=== PATIENT | female | born 1945 | race Caucasian/White ===

== ENCOUNTER → 2023-07-20 10:43 | Outpatient (REF) | payer BC, SELFPAY ==
[2023-07-20 12:28] LABS: % Basophils 1.1 % (0-2); % Eosinophils 3.5 % (0-6); % Immature Granulocytes 0.9 % (0-0.5); % Lymphocytes 16.6 % (20.5-51.1); % Monocytes 12.9 % (1.7-9.3); Absolute Basophils 0.1 10^3/uL (0-0.2); Absolute Eosinophils 0.3 10^3/uL (0-0.7); Absolute Immature Granulocytes 0.1 10^3/uL (0-0.05); Absolute Lymphocytes 1.4 10^3/uL (1.2-3.4); Absolute Monocytes 1.1 10^3/uL (0.1-0.6); Absolute Neutrophils 5.3 10^3/uL (1.4-6.5); Hematocrit 33.4 % (37.0-47.0); Hemoglobin 10.5 g/dL (12.0-16.0); Mean Corp Hgb Conc. 31.4 g/dL (33.0-37.0); Mean Corpuscular Hgb 26.5 pg (27.0-31.0); Mean Corpuscular Volume 84.3 fL (81.0-99.0); Mean Platelet Volume 9.4 fL (7.4-10.4); Nucleated Red Blood Cells % 0 %; Platelet Count 393 10^3/uL (130-400); Red Blood Cell Count 3.96 10^6/uL (4.20-5.40); Red Cell Dist. Width 13.4 % (11.5-14.5); White Blood Cell Count 8.1 10^3/uL (4.8-10.8)
[2023-07-20 13:06] LABS: ALT (SGPT) < 10 U/L (0-35); AST (SGOT) 19 U/L (14-36); Albumin 3.2 g/dl (3.5-5.0); Alkaline Phosphatase 57 U/L (38-126); Blood Urea Nitrogen 15 mg/dl (7-17); Carbon Dioxide 26 mmol/L (22-30); Chloride 95 mmol/L (98-107); Glucose 92 mg/dl (70-99); HDL Cholesterol 48 mg/dl; LDL Cholesterol, Calculated 79 mg/dl; Potassium 4.4 mmol/L (3.5-5.1); Sodium 128 mmol/L (135-145); Total Bilirubin 0.5 mg/dl (0.2-1.3); Total Cholesterol 148 mg/dl (50-199); Total Protein 5.5 g/dl (6.3-8.2); Triglyceride 105 mg/dl (10-149); Very Low Density Lipoprotein 21 mg/dl (0-30); eGFR > 60.00
[2023-07-20 13:09] LABS: Vitamin D, 25-OH*** 35.2 ng/mL (30-80)
[2023-07-20 13:23] LABS: TSH Reflex To Free T4 1.46 uIU/ml (0.47-4.68)
[2023-07-22 10:56] LABS: Intact PTH 34.6 pg/ml (13.6-85.8)
== END ==
LOC: OLABPG 10:43
PROVIDERS: ATTENDING PHYSICIAN Internal Medicine
DX: E55.9 Vitamin D deficiency, unspecified (principal); E21.3 Hyperparathyroidism, unspecified; E03.9 Hypothyroidism, unspecified; R53.83 Other fatigue
CPT/HCPCS: 36415; 80053; 80061; 82306; 83970; 84443; 85025

== ENCOUNTER → 2023-08-17 10:09 | Outpatient (REF) | payer BC, SELFPAY ==
[2023-08-17 11:38] LABS: Blood Urea Nitrogen 13 mg/dl (7-17); Calcium 8.7 mg/dl (8.4-10.2); Carbon Dioxide 25 mmol/L (22-30); Chloride 99 mmol/L (98-107); Glucose 92 mg/dl (70-99); Potassium 4.3 mmol/L (3.5-5.1); Sodium 128 mmol/L (135-145); eGFR > 60.00
== END ==
LOC: OLABPG 10:09
PROVIDERS: ATTENDING PHYSICIAN Internal Medicine
DX: E87.1 Hypo-osmolality and hyponatremia (principal)
CPT/HCPCS: 36415; 80048

== ENCOUNTER → 2023-10-19 10:02 | Outpatient (REF) | payer BC, SELFPAY ==
[2023-10-19 11:00] LABS: Blood Urea Nitrogen 15 mg/dl (7-17); Calcium 9.3 mg/dl (8.4-10.2); Carbon Dioxide 25 mmol/L (22-30); Chloride 98 mmol/L (98-107); Glucose 97 mg/dl (70-99); Potassium 5.1 mmol/L (3.5-5.1); Sodium 131 mmol/L (135-145); eGFR > 60.00
== END ==
LOC: OLABPG 10:02
PROVIDERS: ATTENDING PHYSICIAN Physician Assistant; OTHER PHYSICIAN Obstetrics & Gynecology
DX: F03.90 Unspecified dementia, unspecified severity, without behavioral disturbance, psychotic disturbance, mood disturbance, and anxiety (principal)
CPT/HCPCS: 36415; 80048

== ENCOUNTER → 2023-10-25 15:23 | Outpatient (REF) | payer BC, SELFPAY ==
[2023-10-25 16:17] LABS: Urine Albumin Trace (Neg - Trace); Urine Bilirubin Negative (Negative); Urine Character Very Cloudy (Clear); Urine Color Yellow; Urine Glucose Negative (Negative); Urine Ketone Negative (Negative); Urine Leukocyte 1+ (Negative); Urine Nitrite Positive (Negative); Urine Occult Blood 1+ (Negative); Urine Urobilinogen Negative (Neg - 1+)
[2023-10-25 16:31] LABS: Urine Bacteria Many (Negative); Urine Red Blood Cell 0-2 /HPF (0-2)
== END ==
LOC: OLABPG 15:23
PROVIDERS: ATTENDING PHYSICIAN Internal Medicine
DX: N39.0 Urinary tract infection, site not specified (principal)
CPT/HCPCS: 81003; 81015; 87086

== ENCOUNTER → 2023-10-26 10:03 | Outpatient (REF) | payer BC, SELFPAY ==
[2023-10-26 11:20] LABS: Urine Albumin Negative (Neg - Trace); Urine Bilirubin Negative (Negative); Urine Character Clear (Clear); Urine Color Straw; Urine Glucose Negative (Negative); Urine Ketone Negative (Negative); Urine Leukocyte 1+ (Negative); Urine Nitrite Positive (Negative); Urine Occult Blood Negative (Negative); Urine Urobilinogen Negative (Neg - 1+)
[2023-10-26 11:34] LABS: Urine Bacteria Few (Negative); Urine Red Blood Cell 0-2 /HPF (0-2); Urine Squamous Cell 0-2 /LPF (Few)
== END ==
LOC: OLABPG 10:03
PROVIDERS: ATTENDING PHYSICIAN Internal Medicine
DX: N39.0 Urinary tract infection, site not specified (principal)
CPT/HCPCS: 81003; 81015

== ENCOUNTER → 2023-11-02 10:18 | Outpatient (REF) | payer BC, SELFPAY ==
[2023-11-02 11:56] LABS: Hematocrit 32.2 % (37.0-47.0); Hemoglobin 9.6 g/dL (12.0-16.0); Mean Corp Hgb Conc. 29.8 g/dL (33.0-37.0); Mean Corpuscular Hgb 22.4 pg (27.0-31.0); Mean Corpuscular Volume 75.1 fL (81.0-99.0); Mean Platelet Volume 9.1 fL (7.4-10.4); Platelet Count 401 10^3/uL (130-400); Red Blood Cell Count 4.29 10^6/uL (4.20-5.40); Red Cell Dist. Width 16.1 % (11.5-14.5); White Blood Cell Count 9.3 10^3/uL (4.8-10.8)
[2023-11-02 12:09] LABS: Blood Urea Nitrogen 23 mg/dl (7-17); Calcium 9.6 mg/dl (8.4-10.2); Carbon Dioxide 25 mmol/L (22-30); Chloride 95 mmol/L (98-107); Glucose 95 mg/dl (70-99); Potassium 4.6 mmol/L (3.5-5.1); Sodium 128 mmol/L (135-145); eGFR > 60.00
== END ==
LOC: OLABPG 10:18
PROVIDERS: ATTENDING PHYSICIAN Internal Medicine
DX: I10 Essential (primary) hypertension (principal); E78.2 Mixed hyperlipidemia; R73.03 Prediabetes; I35.8 Other nonrheumatic aortic valve disorders; G23.8 Other specified degenerative diseases of basal ganglia; G11.9 Hereditary ataxia, unspecified; E87.1 Hypo-osmolality and hyponatremia
CPT/HCPCS: 36415; 80048; 85027

== ENCOUNTER → 2023-11-14 10:48 | Outpatient (REF) | payer BC, SELFPAY ==
[2023-11-14 11:48] LABS: % Basophils 1.6 % (0-2); % Eosinophils 5.1 % (0-6); % Immature Granulocytes 0.4 % (0-0.5); % Lymphocytes 21.4 % (20.5-51.1); % Monocytes 10.4 % (1.7-9.3); % Neutrophils 61.1 % (42.2-75.2); Absolute Basophils 0.1 10^3/uL (0-0.2); Absolute Eosinophils 0.4 10^3/uL (0-0.7); Absolute Lymphocytes 1.5 10^3/uL (1.2-3.4); Absolute Monocytes 0.7 10^3/uL (0.1-0.6); Absolute Neutrophils 4.3 10^3/uL (1.4-6.5); Hemoglobin 9.7 g/dL (12.0-16.0); Mean Corp Hgb Conc. 30.3 g/dL (33.0-37.0); Mean Corpuscular Hgb 22.5 pg (27.0-31.0); Mean Corpuscular Volume 74.2 fL (81.0-99.0); Nucleated Red Blood Cells % 0 %; Platelet Count 377 10^3/uL (130-400); Red Blood Cell Count 4.31 10^6/uL (4.20-5.40); Red Cell Dist. Width 16.8 % (11.5-14.5); White Blood Cell Count 7.1 10^3/uL (4.8-10.8)
[2023-11-14 12:19] LABS: ALT (SGPT) 11 U/L (0-35); AST (SGOT) 19 U/L (14-36); Albumin 3.5 g/dl (3.5-5.0); Alkaline Phosphatase 64 U/L (38-126); Blood Urea Nitrogen 15 mg/dl (7-17); Calcium 9.5 mg/dl (8.4-10.2); Carbon Dioxide 29 mmol/L (22-30); Chloride 101 mmol/L (98-107); Glucose 101 mg/dl (70-99); Iron 31 ug/dl (37-170); Potassium 4.5 mmol/L (3.5-5.1); Sodium 133 mmol/L (135-145); Total Bilirubin 0.5 mg/dl (0.2-1.3); eGFR > 60.00
[2023-11-14 12:29] LABS: Percent Saturation 7 % (20-50); Total Iron Binding Capacity 409 ug/dl (265-497)
[2023-11-14 14:35] LABS: Ferritin 6.7 ng/ml (11.1-264.0)
[2023-11-14 15:06] LABS: Folate 10.3 ng/ml (2.76-20); Vitamin B12 709 pg/ml (239-931)
== END ==
LOC: OLABPG 10:48
PROVIDERS: ATTENDING PHYSICIAN Internal Medicine
DX: E78.5 Hyperlipidemia, unspecified (principal); M62.82 Rhabdomyolysis; D64.9 Anemia, unspecified
CPT/HCPCS: 36415; 80053; 82607; 82728; 82746; 83540; 83550; 85025

== ENCOUNTER 2023-11-14 12:14 | Emergency (ER) | payer BC, SELFPAY ==
[2023-11-14 12:17] VITALS: BP 138/74
--- NOTE | 2023-11-14 12:23 | ED.GENMED ---
History of Present Illness
General
Chief Complaint: Catheter/Tube Problem
Source: ambulance crew
Time Seen by Provider: 11/14/23 12:17
Travel History
Have you had any contact with someone who has COVID-19?: Unable to Answer
Do you have any symptoms of coronavirus? Fever > 100 degrees, chills, cough, shortness of breath, sore throat, loss of taste or smell, muscle aches, or headache?: Unable to Answer
History of Present Illness
History of Present Illness:
78-year-old female presenting to the emergency department from [facility] for evaluation after she had accidentally pulled her urinary catheter out this morning and visiting nurse was unable to put back in. Patient has no complaints at this time and
states she otherwise feels well. No other concerns
Past History
Past History
ED Past Medical History: HTN, Hypercholesterolemia and Other (Pemphigus)
ED Past Surgical History: Gynecological (D. and C.) and Tonsilectomy
Social History
Tobacco: Non-smoker
Alcohol: None
Drug: None
Personal: Single
Living: alone (Independent living at [facility])
Family History
Family History: Negative CAD
Review of Systems
Review of Systems
All Other Systems: ROS reviewed and negative except as documented in HPI and ROS
Phy Exam
Physical Exam
Physical Exam:
GENERAL: Alert , in no apparent distress
EYE: conjunctiva clear
Head: Normocephalic atraumatic
NECK: Supple,
ENT: mmm.
LUNGS: no acute respiratory distress
NEUROLOGICAL: Alert and oriented
SKIN: Warm and dry, skin intact.
MUSCULOSKELETAL: well perfused.
PSYCH: Normal and appropriate interaction.
Scores
Heart Failure Risk
Heart Failure Risk Score: Not Applicable
Heart Score for Chest Pain Patients
STEMI patient?: Not applicable
Withdrawal Assessment of Alcohol
Withdrawal Assessment Completed?: Not applicable
Course
Orders/Labs/Results
Orders:
Orders
11/14/23 12:18
Hill Placement- Treatment ONCE
Reason for insertion: Acute Retention
Vital Signs
Initial and Last Documented VS:
Initial Vital Signs
Temp Pulse BP Pulse Ox
98.1 F 95 138/74 96
11/14/23 12:17 11/14/23 12:17 11/14/23 12:17 11/14/23 12:17
Last Documented Vital Signs
Temp Pulse BP Pulse Ox
98.1 F 95 138/74 96
11/14/23 12:17 11/14/23 12:17 11/14/23 12:17 11/14/23 12:17
MDM/Problems Addressed
MDM/Problems Addressed:
78-year-old female presenting for accidentally removing her Hill catheter earlier this morning. Staff unable to replace. Nursing staff here to place Hill catheter without any complications. Patient was stable for discharge back to [facility].
*Pulse Oximetry
Patient hypoxic: no
*Critical Care Note
Total Time (30-74mins, 75-104mins- exclusive of procedures): Not Applicable
Data Reviewed
Review of Other/Old Records Reveals: Labs and Records
Source: patient
ED Attending Note
-
Portions of this chart may have been created with voice recognition software.� Occasional wrong word or��sound alike� substitutions may have occurred due to the inherent limitations of voice recognition software.
Discharge Plan
Departure
Patient Disposition: Home (Routine Discharge)
Date of Disposition: 11/14/23
Time of Disposition: 12:23
Patient with high blood pressure during this ER visit?: No
Discharge Problem:
Acute on chronic urinary retention
Instructions: How to Care for Your Hill Catheter
Prescriptions:
No Action
simvastatin 20 MG tablet
20 mg PO HS
Patient Comments:
04/30/2023, family of patient states that patient is 'not consistent' with taking their medication and have 'no routine' for taking their medications.
Rx Instructions:
04/30/2023, patient filled this medication on 07/02/2022 for a 90 day supply according to the pharmacy fill data.
losartan 25 mg Tablet
25 mg PO DAILY
Patient Comments:
04/30/2023, family of patient states that patient is 'not consistent' with taking their medication and have 'no routine' for taking their medications.
carbidopa-levodopa 25-100 mg Tablet
2 tab PO TID@0800,1200,1700
Patient Comments:
04/30/2023, family of patient states that patient is 'not consistent' with taking their medication and have 'no routine' for taking their medications.
food supplemt, lactose-reduced Liquid
1 ea PO DAILY
Patient Comments:
04/30/2023, family of patient states that patient is 'not consistent' with taking their medication and have 'no routine' for taking their medications.
Viactiv
1 tab PO DAILY
Patient Comments:
04/30/2023, family of patient states that patient is 'not consistent' with taking their medication and have 'no routine' for taking their medications.
Interventions
Interventions:
*Risk Screen - Suicide Last Done: 11/14/23 12:17
*General Assessment Last Done: 11/14/23 12:17
*Neglect/Abuse Screening Last Done: 11/14/23 12:17
*ED COVID-19 Vaccine History Last Done: 11/14/23 12:17
Discharge Date and Time
Print Language: FAROESE
== END 2023-11-14 12:37 | disposition home or self-care (01) ==
LOC: EMR 12:14
PROVIDERS: EMERGENCY PHYSICIAN Emergency Medicine
DX: R33.9 Retention of urine, unspecified (principal)
CPT/HCPCS: 99283; 51702

== ENCOUNTER → 2023-11-23 18:03 | Outpatient (REF) | payer OTHER, SELFPAY | LOC: OLABPG 18:03 | PROVIDERS: ATTENDING PHYSICIAN Internal Medicine | DX: R19.5 Other fecal abnormalities (principal) | CPT/HCPCS: 82272 ==

== ENCOUNTER 2023-12-03 10:23 | Emergency (ER) | payer OTHER, SELFPAY ==
--- NOTE | 2023-12-03 10:25 | ED.GENMED ---
History of Present Illness
General
Chief Complaint: Catheter/Tube Problem
Source: patient and ambulance crew
Time Seen by Provider: 12/03/23 10:24
History of Present Illness
History of Present Illness:
78-year-old female presenting to the emergency department for evaluation after her visiting nurse was unable to replace her Hill catheter after patient had excellently pulled it out. Patient has no concerns at this time including abdominal pain,
fevers, nausea, vomiting, bowel changes. She states she is otherwise in her usual state of health.
Past History
Past History
ED Past Medical History: HTN, Hypercholesterolemia and Other (Pemphigus)
ED Past Surgical History: Gynecological (D. and C.) and Tonsilectomy
Social History
Tobacco: Non-smoker
Alcohol: None
Drug: None
Personal: Single
Living: alone (Independent living at [facility])
Family History
Family History: Negative CAD
Review of Systems
Review of Systems
All Other Systems: ROS reviewed and negative except as documented in HPI and ROS
Phy Exam
Physical Exam
Physical Exam:
GENERAL: Alert , in no apparent distress
EYE: conjunctiva clear
Head: Normocephalic atraumatic
NECK: Supple,
ENT: mmm.
LUNGS: no acute respiratory distress
Abdomen: Soft, nondistended
NEUROLOGICAL: Alert and oriented
SKIN: Warm and dry, skin intact.
MUSCULOSKELETAL: well perfused.
PSYCH: Normal and appropriate interaction.
Scores
Heart Failure Risk
Heart Failure Risk Score: Not Applicable
Heart Score for Chest Pain Patients
STEMI patient?: Not applicable
Withdrawal Assessment of Alcohol
Withdrawal Assessment Completed?: Not applicable
Course
Vital Signs
Initial and Last Documented VS:
Initial Vital Signs
Temp Pulse Resp BP Pulse Ox
97.5 F 94 16 93/63 96
12/03/23 10:31 12/03/23 10:31 12/03/23 10:31 12/03/23 10:31 12/03/23 10:31
Last Documented Vital Signs
Temp Pulse Resp BP Pulse Ox
97.2 F 91 16 102/64 97
12/03/23 13:23 12/03/23 13:23 12/03/23 13:23 12/03/23 13:23 12/03/23 13:23
MDM/Problems Addressed
MDM/Problems Addressed:
78-year-old female presenting emergency department for evaluation after she excellently pulled her Hill catheter out and visiting nurse was unable to replace. Will place new catheter here. As long as no complications patient will be for
disposition back to [facility]. No current symptoms to suggest UTI
*Pulse Oximetry
Patient hypoxic: no
*Critical Care Note
Total Time (30-74mins, 75-104mins- exclusive of procedures): Not Applicable
Data Reviewed
Review of Other/Old Records Reveals: Records
Source: patient and ambulance crew
Patient Management
Escalation/DeEscalation of care consider admission/obs:
Hill catheter replaced without any difficulty. Patient stable for transport back to [facility]. Aware of return precautions to the ED
ED Attending Note
-
Portions of this chart may have been created with voice recognition software.� Occasional wrong word or��sound alike� substitutions may have occurred due to the inherent limitations of voice recognition software.
Discharge Plan
Departure
Patient Disposition: Home (Routine Discharge)
Date of Disposition: 12/03/23
Time of Disposition: 10:51
Patient with high blood pressure during this ER visit?: No
Discharge Problem:
Encounter for Hill catheter replacement
Instructions: How to Care for Your Hill Catheter
Prescriptions:
No Action
simvastatin 20 MG tablet
20 mg PO HS
Patient Comments:
04/30/2023, family of patient states that patient is 'not consistent' with taking their medication and have 'no routine' for taking their medications.
Rx Instructions:
04/30/2023, patient filled this medication on 07/02/2022 for a 90 day supply according to the pharmacy fill data.
losartan 25 mg Tablet
25 mg PO DAILY
Patient Comments:
04/30/2023, family of patient states that patient is 'not consistent' with taking their medication and have 'no routine' for taking their medications.
carbidopa-levodopa 25-100 mg Tablet
2 tab PO TID@0800,1200,1700
Patient Comments:
04/30/2023, family of patient states that patient is 'not consistent' with taking their medication and have 'no routine' for taking their medications.
food supplemt, lactose-reduced Liquid
1 ea PO DAILY
Patient Comments:
04/30/2023, family of patient states that patient is 'not consistent' with taking their medication and have 'no routine' for taking their medications.
Viactiv
1 tab PO DAILY
Patient Comments:
04/30/2023, family of patient states that patient is 'not consistent' with taking their medication and have 'no routine' for taking their medications.
Interventions
Interventions:
*Risk Screen - Suicide Last Done: 12/03/23 10:53
*General Assessment Last Done: 12/03/23 10:53
*Neglect/Abuse Screening Last Done: 12/03/23 10:53
ED- Fall Risk Assessment Last Done: 12/03/23 10:56
*ED COVID-19 Vaccine History Last Done: 12/03/23 10:53
*Nursing Disposition Last Done: 12/03/23 13:23
ZT-Ahcrtv-Dglzcotaxy Assessment Last Done: 12/03/23 10:56
ED-Female Genitourinary Assessment Last Done: 12/03/23 10:56
Discharge Date and Time
Discharge Date/Time: 12/03/23 13:25
Print Language: SLOVAK
[2023-12-03 10:31] VITALS: BP 93/63; BMI 23.1
[2023-12-03 13:23] VITALS: BP 102/64
== END 2023-12-03 13:25 | disposition home or self-care (01) ==
LOC: EMR 10:23
PROVIDERS: EMERGENCY PHYSICIAN Emergency Medicine; FAMILY PHYSICIAN Internal Medicine
DX: Z46.6 Encounter for fitting and adjustment of urinary device (principal)
CPT/HCPCS: 99283; 51702

== ENCOUNTER 2023-12-06 12:20 | Emergency (ER) | payer OTHER, SELFPAY ==
[2023-12-06 12:32] VITALS: BP 131/65
--- NOTE | 2023-12-06 12:32 | ED.GENMED ---
History of Present Illness
General
Chief Complaint: Catheter/Tube Problem
Source: patient and ambulance crew
Time Seen by Provider: 12/06/23 12:31
History of Present Illness
History of Present Illness:
78-year-old female presenting to the emergency department for clogged Hill catheter. Patient was recently here within the last week or so for Hill catheter exchange. Patient has no other concerns at this time. Patient has no other concerns at
this time.
Past History
Past History
ED Past Medical History: HTN, Hypercholesterolemia and Other (Pemphigus)
ED Past Surgical History: Gynecological (D. and C.) and Tonsilectomy
Social History
Tobacco: Non-smoker
Alcohol: None
Drug: None
Personal: Single
Living: alone (Independent living at [facility])
Family History
Family History: Negative CAD
Review of Systems
Review of Systems
All Other Systems: ROS reviewed and negative except as documented in HPI and ROS
Phy Exam
Physical Exam
Physical Exam:
GENERAL: Alert , in no apparent distress
EYE: conjunctiva clear
Head: Normocephalic atraumatic
NECK: Supple,
ENT: mmm.
LUNGS: no acute respiratory distress
NEUROLOGICAL: Alert and oriented
SKIN: Warm and dry, skin intact.
MUSCULOSKELETAL: well perfused.
PSYCH: Normal and appropriate interaction.
Scores
Heart Failure Risk
Heart Failure Risk Score: Not Applicable
Heart Score for Chest Pain Patients
STEMI patient?: Not applicable
Withdrawal Assessment of Alcohol
Withdrawal Assessment Completed?: Not applicable
Course
Vital Signs
Initial and Last Documented VS:
Initial Vital Signs
Temp Pulse Resp BP Pulse Ox
97.7 F 74 17 131/65 99
12/06/23 12:32 12/06/23 12:32 12/06/23 12:32 12/06/23 12:32 12/06/23 12:32
Last Documented Vital Signs
Temp Pulse Resp BP Pulse Ox
97.7 F 74 17 131/65 99
12/06/23 12:32 12/06/23 12:32 12/06/23 12:32 12/06/23 12:32 12/06/23 12:32
MDM/Problems Addressed
MDM/Problems Addressed:
78-year-old female presenting to the emergency department for evaluation of a clogged Hill catheter. Unable to flush. Hill catheter was exchanged without any difficulty. Stable for discharge back to [facility].
*Pulse Oximetry
Patient hypoxic: no
*Critical Care Note
Total Time (30-74mins, 75-104mins- exclusive of procedures): Not Applicable
ED Attending Note
-
Portions of this chart may have been created with voice recognition software.� Occasional wrong word or��sound alike� substitutions may have occurred due to the inherent limitations of voice recognition software.
Discharge Plan
Departure
Patient Disposition: Home (Routine Discharge)
Date of Disposition: 12/06/23
Time of Disposition: 12:32
Patient with high blood pressure during this ER visit?: No
Discharge Problem:
Obstructed Hill catheter
Instructions: How to Care for Your Hill Catheter
Prescriptions:
No Action
simvastatin 20 MG tablet
20 mg PO HS
Patient Comments:
04/30/2023, family of patient states that patient is 'not consistent' with taking their medication and have 'no routine' for taking their medications.
Rx Instructions:
04/30/2023, patient filled this medication on 07/02/2022 for a 90 day supply according to the pharmacy fill data.
losartan 25 mg Tablet
25 mg PO DAILY
Patient Comments:
04/30/2023, family of patient states that patient is 'not consistent' with taking their medication and have 'no routine' for taking their medications.
carbidopa-levodopa 25-100 mg Tablet
2 tab PO TID@0800,1200,1700
Patient Comments:
04/30/2023, family of patient states that patient is 'not consistent' with taking their medication and have 'no routine' for taking their medications.
food supplemt, lactose-reduced Liquid
1 ea PO DAILY
Patient Comments:
04/30/2023, family of patient states that patient is 'not consistent' with taking their medication and have 'no routine' for taking their medications.
Viactiv
1 tab PO DAILY
Patient Comments:
04/30/2023, family of patient states that patient is 'not consistent' with taking their medication and have 'no routine' for taking their medications.
Interventions
Interventions:
*Risk Screen - Suicide Last Done: 12/06/23 12:39
*General Assessment Last Done: 12/06/23 12:39
*Neglect/Abuse Screening Last Done: 12/06/23 12:39
*ED COVID-19 Vaccine History Last Done: 12/06/23 12:39
*Nursing Disposition Last Done: 12/06/23 12:39
RP-Vxwpbq-Sqlyuqkhii Assessment Last Done: 12/06/23 12:33
ED-Female Genitourinary Assessment Last Done: 12/06/23 12:33
Discharge Date and Time
Print Language: MACANESE
== END 2023-12-06 12:39 | disposition home or self-care (01) ==
LOC: EMR 12:20
PROVIDERS: EMERGENCY PHYSICIAN Emergency Medicine; FAMILY PHYSICIAN Internal Medicine
DX: T83.091A Other mechanical complication of indwelling urethral catheter, initial encounter (principal); X58.XXXA Exposure to other specified factors, initial encounter; I10 Essential (primary) hypertension; E78.00 Pure hypercholesterolemia, unspecified
CPT/HCPCS: 99282; 51702

== ENCOUNTER 2023-12-25 15:50 | Emergency (ER) | payer OTHER, SELFPAY ==
[2023-12-25] VITALS (8 sets, daily range): BP systolic 112–146; BP diastolic 61–88; BMI 24.1
--- NOTE | 2023-12-25 16:47 | ED.GENMED ---
History of Present Illness
General
Chief Complaint: Catheter/Tube Problem
Source: patient and ambulance crew
Exam Limitations: none
Time Seen by Provider: 12/25/23 15:53
Nursing documentation reviewed up to this point in time: agreed with
History of Present Illness
History of Present Illness:
78-year-old female with history of Parkinson's, HTN, HLD, dementia presents from [facility] for a malfunctioning Hill catheter, urine has been draining around the catheter. Patient denies abdominal pain, denies fever or chills.
Past History
Past History
ED Past Medical History: HTN, Hypercholesterolemia and Other (Pemphigus, dementia, Parkinson's)
ED Past Surgical History: Gynecological (D. and C.) and Tonsilectomy
Social History
Tobacco: Non-smoker
Alcohol: None
Drug: None
Personal: Single
Living: alone (Independent living at [facility])
Family History
Family History: Negative CAD
Review of Systems
Review of Systems
Allergies reviewed?: Yes
All Other Systems: ROS reviewed and negative except as documented in HPI and ROS
Constitutional: Denies fever or chills
ABD/GI: Denies abdominal pain, nausea or vomiting
: Reports other (Hill catheter leaking)
Musculoskeletal: Denies edema
Skin: Reports no symptoms
Phy Exam
Physical Exam
Physical Exam:
GENERAL: No acute distress. A&Ox2.
CONSTITUTIONAL: Afebrile.
RESPIRATORY: Regular respirations, nonlabored, lungs clear.
CARDIOVASCULAR: Regular rate and rhythm, no murmurs, no rubs.
GI: Soft, nontender, normal BS
: Hill catheter malfunction, bed soaked with urine
MUSCULOSKELETAL: Moves with ease. Well perfused.
SKIN: Warm, dry, pink
PSYCH: Normal mood and affect. Well kept, interactive and appropriate
NEUROLOGIC: Awake, alert and oriented x 2. No focal neurological deficits
Course
Vital Signs
Initial and Last Documented VS:
Initial Vital Signs
Temp Pulse Resp BP Pulse Ox
98.3 F 86 18 123/71 96
12/25/23 15:58 12/25/23 15:58 12/25/23 15:58 12/25/23 15:58 12/25/23 15:58
Last Documented Vital Signs
Temp Pulse Resp BP Pulse Ox
98.3 F 87 18 137/75 97
12/25/23 15:58 12/25/23 17:56 12/25/23 17:56 12/25/23 19:00 12/25/23 19:00
MDM/Problems Addressed
MDM/Problems Addressed:
78-year-old female with history of Parkinson's, HTN, HLD, dementia presents from [facility] for a malfunctioning Hill catheter, urine has been draining around the catheter. Patient denies abdominal pain, denies fever or chills.
Afebrile, NAD
Adbomen benign
Bed pads soaked with urine. Catheter removed and replaced
5:00 p.m.
Hill has no drainage. Bladder scan < 3 ml in bladder. Pt drinking well.
Pt is Hospice, no fever, no UTI symptoms, no indication for further testing such as U/A.
At discharge, Hill draining well.
*Critical Care Note
Total Time (30-74mins, 75-104mins- exclusive of procedures): Not Applicable
ED Attending Note
-
Portions of this chart may have been created with voice recognition software.� Occasional wrong word or��sound alike� substitutions may have occurred due to the inherent limitations of voice recognition software.
Discharge Plan
Departure
Patient Disposition: Long Term/SNF
Date of Disposition: 12/25/23
Time of Disposition: 17:06
Condition: Good
Discharge Problem:
Hill catheter problem
Prescriptions:
No Action
simvastatin 20 MG tablet
20 mg PO HS
Patient Comments:
04/30/2023, family of patient states that patient is 'not consistent' with taking their medication and have 'no routine' for taking their medications.
Rx Instructions:
04/30/2023, patient filled this medication on 07/02/2022 for a 90 day supply according to the pharmacy fill data.
losartan 25 mg Tablet
25 mg PO DAILY
Patient Comments:
04/30/2023, family of patient states that patient is 'not consistent' with taking their medication and have 'no routine' for taking their medications.
carbidopa-levodopa 25-100 mg Tablet
2 tab PO TID@0800,1200,1700
Patient Comments:
04/30/2023, family of patient states that patient is 'not consistent' with taking their medication and have 'no routine' for taking their medications.
food supplemt, lactose-reduced Liquid
1 ea PO DAILY
Patient Comments:
04/30/2023, family of patient states that patient is 'not consistent' with taking their medication and have 'no routine' for taking their medications.
Viactiv
1 tab PO DAILY
Patient Comments:
04/30/2023, family of patient states that patient is 'not consistent' with taking their medication and have 'no routine' for taking their medications.
Referrals:
CAROLANN MEDINA, [Family Provider] -
Activity Restrictions/Additional Instructions:
We replaced Ms Kang's catheter with 18 Fr. latex free catheter.
Interventions
Interventions:
*Risk Screen - Suicide Last Done: 12/25/23 16:08
*General Assessment Last Done: 12/25/23 16:08
*Neglect/Abuse Screening Last Done: 12/25/23 16:08
ED- Fall Risk Assessment Last Done: 12/25/23 16:10
*ED COVID-19 Vaccine History Last Done: 12/25/23 16:08
PW-Cxcdso-Lkmzrvrznl Assessment Last Done: 12/25/23 16:08
ED-Female Genitourinary Assessment Last Done: 12/25/23 16:08
Discharge Date and Time
Print Language: MONEGASQUE
== END 2023-12-25 22:34 ==
LOC: EMR 15:50
PROVIDERS: EMERGENCY PHYSICIAN Student in an Organized Health Care Education/Training Program; FAMILY PHYSICIAN Internal Medicine
DX: T83.038A Leakage of other urinary catheter, initial encounter (principal); Y84.6 Urinary catheterization as the cause of abnormal reaction of the patient, or of later complication, without mention of misadventure at the time of the procedure; F02.80 Dementia in other diseases classified elsewhere, unspecified severity, without behavioral disturbance, psychotic disturbance, mood disturbance, and anxiety; G20.A1 Parkinson's disease without dyskinesia, without mention of fluctuations; I10 Essential (primary) hypertension; E78.00 Pure hypercholesterolemia, unspecified; Z88.1 Allergy status to other antibiotic agents
CPT/HCPCS: 99284; 51798; 51702

== ENCOUNTER → 2024-01-09 14:15 | Outpatient (REF) | payer OTHER, SELFPAY ==
[2024-01-09 15:00] LABS: Hematocrit 38.4 % (37.0-47.0); Mean Corp Hgb Conc. 31.3 g/dL (33.0-37.0); Mean Corpuscular Hgb 25.1 pg (27.0-31.0); Mean Corpuscular Volume 80.2 fL (81.0-99.0); Mean Platelet Volume 9.5 fL (7.4-10.4); Platelet Count 343 10^3/uL (130-400); Red Blood Cell Count 4.79 10^6/uL (4.20-5.40); Red Cell Dist. Width 18.2 % (11.5-14.5)
[2024-01-09 15:16] LABS: Blood Urea Nitrogen 15 mg/dl (7-17); Calcium 9.5 mg/dl (8.4-10.2); Carbon Dioxide 28 mmol/L (22-30); Chloride 98 mmol/L (98-107); Glucose 91 mg/dl (70-99); Iron 48 ug/dl (37-170); Potassium 4.3 mmol/L (3.5-5.1); Sodium 132 mmol/L (135-145); eGFR > 60.00
== END ==
LOC: OLABPG 14:15
PROVIDERS: ATTENDING PHYSICIAN Internal Medicine
DX: D50.9 Iron deficiency anemia, unspecified (principal); E87.1 Hypo-osmolality and hyponatremia; G20.A1 Parkinson's disease without dyskinesia, without mention of fluctuations; I10 Essential (primary) hypertension
CPT/HCPCS: 36415; 80048; 83540; 85027

== ENCOUNTER → 2024-03-14 11:05 | Outpatient (REF) | payer OTHER, SELFPAY ==
[2024-03-14 12:40] LABS: % Basophils 1.2 % (0-2); % Eosinophils 3.6 % (0-6); % Immature Granulocytes 0.5 % (0-0.5); % Lymphocytes 18.9 % (20.5-51.1); % Monocytes 10.1 % (1.7-9.3); % Neutrophils 65.7 % (42.2-75.2); Absolute Basophils 0.1 10^3/uL (0-0.2); Absolute Eosinophils 0.3 10^3/uL (0-0.7); Absolute Lymphocytes 1.6 10^3/uL (1.2-3.4); Absolute Monocytes 0.9 10^3/uL (0.1-0.6); Absolute Neutrophils 5.7 10^3/uL (1.4-6.5); Hematocrit 38.6 % (37.0-47.0); Hemoglobin 12.7 g/dL (12.0-16.0); Mean Corp Hgb Conc. 32.9 g/dL (33.0-37.0); Mean Corpuscular Hgb 26.5 pg (27.0-31.0); Mean Corpuscular Volume 80.4 fL (81.0-99.0); Mean Platelet Volume 8.8 fL (7.4-10.4); Nucleated Red Blood Cells % 0 %; Platelet Count 342 10^3/uL (130-400); Red Cell Dist. Width 14.9 % (11.5-14.5); White Blood Cell Count 8.6 10^3/uL (4.8-10.8)
[2024-03-14 12:57] LABS: ALT (SGPT) 11 U/L (0-35); AST (SGOT) 20 U/L (14-36); Albumin 3.9 g/dl (3.5-5.0); Alkaline Phosphatase 64 U/L (38-126); Blood Urea Nitrogen 16 mg/dl (7-17); Calcium 9.3 mg/dl (8.4-10.2); Carbon Dioxide 27 mmol/L (22-30); Chloride 95 mmol/L (98-107); Glucose 99 mg/dl (70-99); Iron 44 ug/dl (37-170); Potassium 4.6 mmol/L (3.5-5.1); Sodium 134 mmol/L (135-145); Total Bilirubin 0.3 mg/dl (0.2-1.3); Total Protein 6.3 g/dl (6.3-8.2); eGFR > 60.00
[2024-03-14 13:06] LABS: Percent Saturation 10 % (20-50); Total Iron Binding Capacity 413 ug/dl (265-497)
[2024-03-14 13:13] LABS: Free T4 1.04 ng/dl (0.78-2.19)
[2024-03-14 13:31] LABS: Ferritin 9.6 ng/ml (11.1-264.0)
== END ==
LOC: OLABPG 11:05
PROVIDERS: ATTENDING PHYSICIAN Internal Medicine
DX: D50.9 Iron deficiency anemia, unspecified (principal); E87.1 Hypo-osmolality and hyponatremia; R63.4 Abnormal weight loss
CPT/HCPCS: 36415; 80053; 82728; 83540; 83550; 84439; 84443; 85025

== ENCOUNTER → 2024-06-17 11:12 | Outpatient (REF) | payer OTHER, SELFPAY ==
[2024-06-17 11:40] LABS: Hematocrit 33.8 % (37.0-47.0); Hemoglobin 11.1 g/dL (12.0-16.0); Mean Corp Hgb Conc. 32.8 g/dL (33.0-37.0); Mean Corpuscular Hgb 29.7 pg (27.0-31.0); Mean Corpuscular Volume 90.4 fL (81.0-99.0); Platelet Count 385 10^3/uL (130-400); Red Blood Cell Count 3.74 10^6/uL (4.20-5.40); Red Cell Dist. Width 13.5 % (11.5-14.5); White Blood Cell Count 9.4 10^3/uL (4.8-10.8)
[2024-06-17 11:51] LABS: Blood Urea Nitrogen 17 mg/dl (7-17); Calcium 8.7 mg/dl (8.4-10.2); Carbon Dioxide 25 mmol/L (22-30); Chloride 93 mmol/L (98-107); Glucose 87 mg/dl (70-99); Potassium 3.9 mmol/L (3.5-5.1); Sodium 129 mmol/L (135-145); eGFR > 60.00
== END ==
LOC: OLABP 11:12
PROVIDERS: ATTENDING PHYSICIAN Family Medicine
DX: G20.A1 Parkinson's disease without dyskinesia, without mention of fluctuations (principal); F03.918 Unspecified dementia, unspecified severity, with other behavioral disturbance; R04.0 Epistaxis; E87.20 Acidosis, unspecified; N31.9 Neuromuscular dysfunction of bladder, unspecified
CPT/HCPCS: 36415; 80048; 85027

== ENCOUNTER → 2024-06-25 11:00 | Outpatient (REF) | payer OTHER, SELFPAY ==
[2024-06-25 12:15] LABS: Blood Urea Nitrogen 17 mg/dl (7-17); Carbon Dioxide 30 mmol/L (22-30); Chloride 96 mmol/L (98-107); Glucose 125 mg/dl (70-99); Potassium 4.1 mmol/L (3.5-5.1); Sodium 134 mmol/L (135-145); eGFR > 60.00
== END ==
LOC: OLABP 11:00
PROVIDERS: ATTENDING PHYSICIAN Family Medicine
DX: G20.A1 Parkinson's disease without dyskinesia, without mention of fluctuations (principal); R04.0 Epistaxis; E87.20 Acidosis, unspecified; N31.9 Neuromuscular dysfunction of bladder, unspecified
CPT/HCPCS: 36415; 80048

== ENCOUNTER → 2024-06-29 11:28 | Outpatient (REF) | payer OTHER, SELFPAY ==
[2024-06-29 15:05] LABS: Urine Albumin 2+ (Neg - Trace); Urine Bilirubin Negative (Negative); Urine Character Very Cloudy (Clear); Urine Color Brown; Urine Glucose Negative (Negative); Urine Ketone Trace (Negative); Urine Leukocyte 2+ (Negative); Urine Nitrite Positive (Negative); Urine Occult Blood 3+ (Negative); Urine Urobilinogen Negative (Neg - 1+)
[2024-06-29 15:22] LABS: Urine Bacteria Many (Negative); Urine Red Blood Cell 50-60 /HPF (0-2); Urine Squamous Cell 0-2 /LPF (Few); Urine White Cell 30-40 /HPF (0-5)
== END ==
LOC: OLABP 11:28
PROVIDERS: ATTENDING PHYSICIAN Family Medicine
DX: N31.9 Neuromuscular dysfunction of bladder, unspecified (principal); G20.A1 Parkinson's disease without dyskinesia, without mention of fluctuations; R04.0 Epistaxis; E87.20 Acidosis, unspecified
CPT/HCPCS: 81003; 81015; 87086

== ENCOUNTER → 2024-07-01 09:00 | Outpatient (REF) | payer OTHER, SELFPAY ==
[2024-07-01 22:34] LABS: Urine Character Very Cloudy (Clear); Urine Color Yellow
[2024-07-01 22:35] LABS: Urine Albumin 1+ (Neg - Trace); Urine Glucose Negative (Negative); Urine Leukocyte 2+ (Negative); Urine Nitrite Positive (Negative)
[2024-07-01 22:36] LABS: Urine Bilirubin Negative (Negative); Urine Ketone Trace (Negative); Urine Occult Blood 4+ (Negative); Urine Squamous Cell 0-2 /LPF (Few); Urine Triple Phosphate Crystal Present; Urine Urobilinogen Negative (Neg - 1+)
[2024-07-01 22:37] LABS: Urine Bacteria Many (Negative); Urine White Cell 80-90 /HPF (0-5)
== END ==
LOC: OLABP 09:00
PROVIDERS: ATTENDING PHYSICIAN Family Medicine
DX: G20.A1 Parkinson's disease without dyskinesia, without mention of fluctuations (principal); R04.0 Epistaxis; E87.20 Acidosis, unspecified; N31.9 Neuromuscular dysfunction of bladder, unspecified
CPT/HCPCS: 81003; 81015; 87077; 87086; 87186

== ENCOUNTER 2024-07-22 11:21 | Emergency (ER) | payer OTHER, SELFPAY ==
[2024-07-22 11:29] VITALS: BP 129/54
[2024-07-22 11:36] VITALS: BMI 22.9
--- NOTE | 2024-07-22 11:55 | EDRN ---
Hill catheter was clogged unable to flush/irrigate or pull back on it to obtain urine. Was 200 mL in Leg bag.
[2024-07-22 12:00] VITALS: BP 135/70
[2024-07-22 12:22] LABS: Urine Albumin 1+ (Neg - Trace); Urine Bilirubin Negative (Negative); Urine Character Slightly Cloudy (Clear); Urine Color Yellow; Urine Glucose Negative (Negative); Urine Ketone 1+ (Negative); Urine Leukocyte 3+ (Negative); Urine Nitrite Positive (Negative); Urine Occult Blood 1+ (Negative); Urine Specific Gravity 1.015 (<1.030); Urine Urobilinogen Negative (Neg - 1+)
[2024-07-22 13:00] VITALS: BP 128/61
[2024-07-22 14:20] LABS: Urine Bacteria Many (Negative); Urine White Cell 16-20 /HPF (0-5)
--- NOTE | 2024-07-22 14:28 | ED.GENMED ---
History of Present Illness
General
Chief Complaint: Catheter/Tube Problem
Source: shelter
Exam Limitations: none
Time Seen by Provider: 07/22/24 13:01
Nursing documentation reviewed up to this point in time: agreed with
History of Present Illness
History of Present Illness:
Patient to ED for eval of blocked chaudhry catheter. Unable to clear at shelter. Patient is without complaints. No report of fever, abdominal pain/vomiting/diarrhea. No reports of mental status changes. Brought to ED via EMS for eval
Past History
Past History
ED Past Medical History: HTN, Hypercholesterolemia and Other (Pemphigus, dementia, Parkinson's)
ED Past Surgical History: Gynecological (D. and C.) and Tonsilectomy
Social History
Tobacco: Non-smoker
Alcohol: None
Drug: None
Personal: Single
Living: alone (Independent living at [facility])
Family History
Family History: Negative CAD
Review of Systems
Review of Systems
Allergies reviewed?: Yes
All Other Systems: ROS reviewed and negative except as documented in HPI and ROS
Constitutional: Reports no symptoms
EENT: Reports no symptoms
Respiratory: Reports no symptoms
Cardiac: Reports no symptoms
ABD/GI: Reports no symptoms
: Reports other (blocked chaudhry catheter)
Musculoskeletal: Reports no symptoms
Skin: Reports no symptoms
Neurological: Reports no symptoms
Psychiatric: Reports no symptoms
Phy Exam
General Physical Exam
General Presentation: well appearing and no apparent distress
General age: appears stated age
General Skin: warm and dry
General Habitus: normal
Cardiovascular Exam
Cardiovascular Exam: no edema
Pulmonary Exam
Pulmonary Exam: lungs clear and no respiratory distress
Gastrointestinal Exam
Gastrointestinal Exam: normal bowel sounds, non tender, soft, no organomegaly and non distended
Neurological Exam
Neurological Exam: alert, no motor deficits, no sensory deficits and speech normal
Musculoskeletal Exam
Musculoskeletal Exam: full ROM and neuro vasc intact
Skin Exam
Skin Exam: normal color, warm/dry and no rash
Psychiatric Exam
Psychiatric Exam: normal mood/affect
Course
Orders/Labs/Results
Orders:
Orders
07/22/24 12:07
Urinalysis Reflex To Culture Urgent
Date Specimen was Collected: 07/22/24
Time Specimen was Collected: 12:06
Urine Microscopic Reflex Cult Urgent
Urine Culture Urgent
KARTHIK Source: U
Specimen Description:
Date Specimen was Collected: 07/22/24
Time Specimen was Collected: 12:06
07/22/24 14:25
Fosfomycin [Monurol] 3 gm PO ONCE ONE
Abnormal Lab Results
07/22/24
12:07
Urine Ketones 1+ A
(Negative)
Ur Occult Blood Reflex 1+ A
(Negative)
Urine Nitrite (Reflex) Positive A
(Negative)
Leukocyte Esterase Rfl 3+ A
(Negative)
Urine RBC 3-6 A /HPF
(0-2)
Urine WBC (Reflex) 16-20 A /HPF
(0-5)
Urine Bacteria (Reflex) Many A
(Negative)
Urine Albumin (Reflex) 1+ A
(Neg - Trace)
Vital Signs
Initial and Last Documented VS:
Initial Vital Signs
Temp Pulse Resp BP Pulse Ox
97.8 F 80 16 129/54 95
07/22/24 11:29 07/22/24 11:29 07/22/24 11:29 07/22/24 11:29 07/22/24 11:29
Last Documented Vital Signs
Temp Pulse Resp BP Pulse Ox
97.8 F 83 16 135/70 96
07/22/24 11:29 07/22/24 12:00 07/22/24 12:00 07/22/24 12:00 07/22/24 12:00
Update Note
Update Note:
Patient arrives to ED with blocked chaudhry catheter. Catheter changes by RN and is draining now without difficulty. She remains afebrile, abd. soft, nontender. UA suspect UTI. Given dose of monurol in ED. WIll discharge back to shelter,
culture is pending.
ED Attending Note
-
Portions of this chart may have been created with voice recognition software.� Occasional wrong word or��sound alike� substitutions may have occurred due to the inherent limitations of voice recognition software.
Discharge Plan
Departure
Prescriptions:
No Action
simvastatin 20 MG tablet
20 mg PO HS
Patient Comments:
04/30/2023, family of patient states that patient is 'not consistent' with taking their medication and have 'no routine' for taking their medications.
Rx Instructions:
04/30/2023, patient filled this medication on 07/02/2022 for a 90 day supply according to the pharmacy fill data.
losartan 25 mg Tablet
25 mg PO DAILY
Patient Comments:
04/30/2023, family of patient states that patient is 'not consistent' with taking their medication and have 'no routine' for taking their medications.
carbidopa-levodopa 25-100 mg Tablet
2 tab PO TID@0800,1200,1700
Patient Comments:
04/30/2023, family of patient states that patient is 'not consistent' with taking their medication and have 'no routine' for taking their medications.
food supplemt, lactose-reduced Liquid
1 ea PO DAILY
Patient Comments:
04/30/2023, family of patient states that patient is 'not consistent' with taking their medication and have 'no routine' for taking their medications.
Viactiv
1 tab PO DAILY
Patient Comments:
04/30/2023, family of patient states that patient is 'not consistent' with taking their medication and have 'no routine' for taking their medications.
Referrals:
UNKNOWN - PT NOT,INTERVIEWE [Family Provider] -
Interventions
Interventions:
*Risk Screen - Suicide Last Done: 07/22/24 11:29
*General Assessment Last Done: 07/22/24 11:29
*Neglect/Abuse Screening Last Done: 07/22/24 11:29
ED- Fall Risk Assessment Last Done: 07/22/24 11:35
*ED COVID-19 Vaccine History Last Done: 07/22/24 11:34
RX-Vuxfmq-Ozlyoyxmom Assessment Last Done: 07/22/24 11:36
ED-Female Genitourinary Assessment Last Done: 07/22/24 11:36
Discharge Date and Time
Print Language: INDONESIAN
[2024-07-22] MEDS: MONUROL 3 GM PO (14:57)
[2024-07-22 15:00] VITALS: BP 149/83
--- NOTE | 2024-07-22 15:04 | EDRN ---
Pt awaiting discharge transport at this time. 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
--- NOTE | 2024-07-22 15:10 | EDRN ---
First attempt to call report.
--- NOTE | 2024-07-22 15:13 | EDRN ---
Report called to Ela Hurd LPN at [facility] at this time. Pt is awaiting discharge transport back and Acute care is scheduled to come at 16:00.
--- NOTE | 2024-07-22 16:41 | EDRN ---
Acute Care late and has not arrived. Paper Sample Clerk is checking on status of discharge transport.
[2024-07-22 16:48] VITALS: BP 131/88
== END 2024-07-22 16:55 ==
LOC: EMR 11:21
PROVIDERS: EMERGENCY PHYSICIAN Emergency Medicine
DX: T83.098A Other mechanical complication of other urinary catheter, initial encounter (principal); X58.XXXA Exposure to other specified factors, initial encounter; E78.00 Pure hypercholesterolemia, unspecified; I10 Essential (primary) hypertension; F02.80 Dementia in other diseases classified elsewhere, unspecified severity, without behavioral disturbance, psychotic disturbance, mood disturbance, and anxiety; G20.A1 Parkinson's disease without dyskinesia, without mention of fluctuations
CPT/HCPCS: 51702; 99283; 81003; 81015; 87077; 87086; 87186

== ENCOUNTER → 2024-08-13 10:21 | Outpatient (REF) | payer OTHER, SELFPAY ==
[2024-08-13 11:05] LABS: Hematocrit 34.3 % (37.0-47.0); Mean Corp Hgb Conc. 32.1 g/dL (33.0-37.0); Mean Corpuscular Volume 84.3 fL (81.0-99.0); Mean Platelet Volume 8.9 fL (7.4-10.4); Platelet Count 418 10^3/uL (130-400); Red Blood Cell Count 4.07 10^6/uL (4.20-5.40); Red Cell Dist. Width 13.9 % (11.5-14.5); White Blood Cell Count 13.7 10^3/uL (4.8-10.8)
[2024-08-13 11:35] LABS: Blood Urea Nitrogen 15 mg/dl (7-17); Calcium 9.2 mg/dl (8.4-10.2); Carbon Dioxide 26 mmol/L (22-30); Chloride 94 mmol/L (98-107); Glucose 103 mg/dl (70-99); Potassium 4.9 mmol/L (3.5-5.1); Sodium 129 mmol/L (135-145); eGFR > 60.00
== END ==
LOC: OLABPG 10:21
PROVIDERS: ATTENDING PHYSICIAN Family Medicine
DX: Z01.89 Encounter for other specified special examinations (principal); R79.0 Abnormal level of blood mineral
CPT/HCPCS: 36415; 80048; 85027

== ENCOUNTER 2024-08-16 06:20 | Day surgery (SDC) | payer OTHER, SELFPAY ==
[2024-08-16 11:57] VITALS: BP 138/68
[2024-08-16] MEDS: NORMOSOL-R/PLASMALYTE-A 1000 IV (12:17)
[2024-08-16 14:19] VITALS: BP 138/68; BP 138/70
[2024-08-16 14:30] VITALS: BP 149/82
[2024-08-16 14:45] VITALS: BP 154/79
[2024-08-16 15:00] VITALS: BP 167/91
[2024-08-16 15:20] VITALS: BP 165/89
== END 2024-08-16 15:05 | disposition home or self-care (01) ==
LOC: SDS 06:20
PROVIDERS: ATTENDING PHYSICIAN Urology
DX: N31.9 Neuromuscular dysfunction of bladder, unspecified (principal); N32.89 Other specified disorders of bladder
CPT/HCPCS: 51102

== ENCOUNTER → 2024-09-24 09:54 | Outpatient (REF) | payer OTHER, SELFPAY ==
[2024-09-24 11:17] LABS: Hematocrit 37.5 % (37.0-47.0); Hemoglobin 11.5 g/dL (12.0-16.0); Mean Corp Hgb Conc. 30.7 g/dL (33.0-37.0); Mean Corpuscular Volume 81.5 fL (81.0-99.0); Mean Platelet Volume 8.6 fL (7.4-10.4); Platelet Count 730 10^3/uL (130-400); Red Cell Dist. Width 15.4 % (11.5-14.5); White Blood Cell Count 15.2 10^3/uL (4.8-10.8)
[2024-09-24 11:23] LABS: ALT (SGPT) < 10 U/L (0-35); AST (SGOT) 13 U/L (14-36); Albumin 2.7 g/dl (3.5-5.0); Alkaline Phosphatase 138 U/L (38-126); Blood Urea Nitrogen 14 mg/dl (7-17); Calcium 8.7 mg/dl (8.4-10.2); Carbon Dioxide 27 mmol/L (22-30); Chloride 99 mmol/L (98-107); Glucose 96 mg/dl (70-99); Iron 25 ug/dl (37-170); Sodium 134 mmol/L (135-145); Total Bilirubin 0.5 mg/dl (0.2-1.3); Total Cholesterol 108 mg/dl (50-199); Total Protein 5.8 g/dl (6.3-8.2); Triglyceride 101 mg/dl (10-149); Very Low Density Lipoprotein 20 mg/dl (0-30); eGFR > 60.00
[2024-09-24 12:14] LABS: Free T4 1.82 ng/dl (0.78-2.19); HDL Cholesterol 21 mg/dl; LDL Cholesterol, Calculated 67 mg/dl
[2024-09-24 12:15] LABS: TSH 0.85 uIU/ml (0.47-4.68)
[2024-09-24 12:29] LABS: Folate 6.6 ng/ml (2.76-20); Vitamin B12 877 pg/ml (239-931)
== END ==
LOC: OLABPG 09:54
PROVIDERS: ATTENDING PHYSICIAN Nurse Practitioner Gerontology
DX: Z86.2 Personal history of diseases of the blood and blood-forming organs and certain disorders involving the immune mechanism (principal); Z13.29 Encounter for screening for other suspected endocrine disorder; Z13.1 Encounter for screening for diabetes mellitus; I10 Essential (primary) hypertension; G20.A1 Parkinson's disease without dyskinesia, without mention of fluctuations; D50.9 Iron deficiency anemia, unspecified; E78.5 Hyperlipidemia, unspecified; E87.1 Hypo-osmolality and hyponatremia
CPT/HCPCS: 36415; 80053; 80061; 82607; 82746; 83036; 83540; 84439; 84443; 85027

== ENCOUNTER → 2024-10-11 06:00 | Outpatient (REF) | payer OTHER, SELFPAY ==
[2024-10-11 12:35] LABS: Urine Albumin 2+ (Neg - Trace); Urine Bilirubin Negative (Negative); Urine Character Slightly Cloudy (Clear); Urine Color Yellow; Urine Glucose Negative (Negative); Urine Ketone 1+ (Negative); Urine Leukocyte 2+ (Negative); Urine Nitrite Positive (Negative); Urine Occult Blood 3+ (Negative); Urine Specific Gravity 1.015 (<1.030); Urine Urobilinogen Negative (Neg - 1+)
[2024-10-11 12:51] LABS: % Basophils 1.1 % (0-2); % Eosinophils 17.1 % (0-6); % Immature Granulocytes 0.5 % (0-0.5); % Lymphocytes 15.9 % (20.5-51.1); % Monocytes 11.4 % (1.7-9.3); Absolute Basophils 0.1 10^3/uL (0-0.2); Absolute Eosinophils 1.9 10^3/uL (0-0.7); Absolute Immature Granulocytes 0.1 10^3/uL (0-0.05); Absolute Lymphocytes 1.7 10^3/uL (1.2-3.4); Absolute Monocytes 1.2 10^3/uL (0.1-0.6); Absolute Neutrophils 5.9 10^3/uL (1.4-6.5); Hematocrit 34.2 % (37.0-47.0); Hemoglobin 10.5 g/dL (12.0-16.0); Mean Corp Hgb Conc. 30.7 g/dL (33.0-37.0); Mean Corpuscular Hgb 25.1 pg (27.0-31.0); Mean Corpuscular Volume 81.8 fL (81.0-99.0); Mean Platelet Volume 8.9 fL (7.4-10.4); Nucleated Red Blood Cells % 0 %; Platelet Count 733 10^3/uL (130-400); Red Blood Cell Count 4.18 10^6/uL (4.20-5.40); Red Cell Dist. Width 15.9 % (11.5-14.5); White Blood Cell Count 10.8 10^3/uL (4.8-10.8)
[2024-10-11 12:57] LABS: ALT (SGPT) < 10 U/L (0-35); AST (SGOT) 15 U/L (14-36); Albumin 2.9 g/dl (3.5-5.0); Alkaline Phosphatase 111 U/L (38-126); Blood Urea Nitrogen 16 mg/dl (7-17); Calcium 8.7 mg/dl (8.4-10.2); Carbon Dioxide 28 mmol/L (22-30); Chloride 102 mmol/L (98-107); Glucose 101 mg/dl (70-99); Potassium 4.9 mmol/L (3.5-5.1); Sodium 137 mmol/L (135-145); Total Bilirubin 0.5 mg/dl (0.2-1.3); Total Protein 5.9 g/dl (6.3-8.2); eGFR > 60.00
[2024-10-11 14:08] LABS: Urine Mucus Many
[2024-10-11 14:09] LABS: Urine Bacteria Many (Negative)
[2024-10-11 14:10] LABS: Urine Squamous Cell >30 /LPF (Few)
[2024-10-11 14:11] LABS: Urine Hyaline Cast 0-2 /LPF (0-2); Urine White Cell 40-50 /HPF (0-5)
== END ==
LOC: OLABPG 06:00
PROVIDERS: ATTENDING PHYSICIAN Internal Medicine
DX: D49.1 Neoplasm of unspecified behavior of respiratory system (principal); R79.89 Other specified abnormal findings of blood chemistry; D72.829 Elevated white blood cell count, unspecified; N39.0 Urinary tract infection, site not specified
CPT/HCPCS: 36415; 80053; 81003; 81015; 85025; 87077; 87086; 87186

== ENCOUNTER → 2024-10-17 11:33 | Outpatient (REF) | payer OTHER, SELFPAY ==
[2024-10-17 12:07] LABS: % Basophils 0.8 % (0-2); % Eosinophils 15.8 % (0-6); % Immature Granulocytes 0.5 % (0-0.5); % Lymphocytes 15.4 % (20.5-51.1); % Monocytes 9.9 % (1.7-9.3); % Neutrophils 57.6 % (42.2-75.2); Absolute Basophils 0.1 10^3/uL (0-0.2); Absolute Eosinophils 1.7 10^3/uL (0-0.7); Absolute Immature Granulocytes 0.1 10^3/uL (0-0.05); Absolute Lymphocytes 1.7 10^3/uL (1.2-3.4); Absolute Monocytes 1.1 10^3/uL (0.1-0.6); Absolute Neutrophils 6.2 10^3/uL (1.4-6.5); Hematocrit 38.8 % (37.0-47.0); Hemoglobin 11.5 g/dL (12.0-16.0); Mean Corp Hgb Conc. 29.6 g/dL (33.0-37.0); Mean Corpuscular Hgb 24.4 pg (27.0-31.0); Mean Corpuscular Volume 82.4 fL (81.0-99.0); Nucleated Red Blood Cells % 0 %; Platelet Count 630 10^3/uL (130-400); Red Blood Cell Count 4.71 10^6/uL (4.20-5.40); Red Cell Dist. Width 15.9 % (11.5-14.5); White Blood Cell Count 10.8 10^3/uL (4.8-10.8)
[2024-10-17 12:20] LABS: Blood Urea Nitrogen 16 mg/dl (7-17); Calcium 8.7 mg/dl (8.4-10.2); Carbon Dioxide 30 mmol/L (22-30); Chloride 103 mmol/L (98-107); Glucose 98 mg/dl (70-99); Potassium 4.6 mmol/L (3.5-5.1); Sodium 137 mmol/L (135-145); eGFR > 60.00
== END ==
LOC: OLABPG 11:33
PROVIDERS: ATTENDING PHYSICIAN Internal Medicine
DX: R79.89 Other specified abnormal findings of blood chemistry (principal); D72.829 Elevated white blood cell count, unspecified; N39.0 Urinary tract infection, site not specified
CPT/HCPCS: 36415; 80048; 85025

== ENCOUNTER → 2024-11-12 10:16 | Outpatient (REF) | payer OTHER, SELFPAY ==
[2024-11-12 11:21] LABS: % Eosinophils 4.1 % (0-6); % Immature Granulocytes 0.5 % (0-0.5); % Lymphocytes 10.5 % (20.5-51.1); % Monocytes 8.3 % (1.7-9.3); % Neutrophils 75.6 % (42.2-75.2); Absolute Basophils 0.1 10^3/uL (0-0.2); Absolute Eosinophils 0.5 10^3/uL (0-0.7); Absolute Immature Granulocytes 0.1 10^3/uL (0-0.05); Absolute Lymphocytes 1.3 10^3/uL (1.2-3.4); Absolute Neutrophils 9.3 10^3/uL (1.4-6.5); Hematocrit 39.7 % (37.0-47.0); Hemoglobin 12.2 g/dL (12.0-16.0); Mean Corp Hgb Conc. 30.7 g/dL (33.0-37.0); Mean Corpuscular Hgb 25.4 pg (27.0-31.0); Mean Corpuscular Volume 82.7 fL (81.0-99.0); Mean Platelet Volume 9.3 fL (7.4-10.4); Nucleated Red Blood Cells % 0 %; Platelet Count 597 10^3/uL (130-400); White Blood Cell Count 12.3 10^3/uL (4.8-10.8)
== END ==
LOC: OLABPG 10:16
PROVIDERS: ATTENDING PHYSICIAN Internal Medicine
DX: D72.829 Elevated white blood cell count, unspecified (principal); D69.1 Qualitative platelet defects; D75.9 Disease of blood and blood-forming organs, unspecified
CPT/HCPCS: 36415; 85025

== ENCOUNTER → 2024-11-28 11:04 | Outpatient (REF) | payer OTHER, SELFPAY ==
[2024-11-28 12:04] LABS: % Basophils 1.4 % (0-2); % Eosinophils 6.8 % (0-6); % Immature Granulocytes 0.3 % (0-0.5); % Lymphocytes 17.8 % (20.5-51.1); % Neutrophils 64.7 % (42.2-75.2); Absolute Basophils 0.1 10^3/uL (0-0.2); Absolute Eosinophils 0.6 10^3/uL (0-0.7); Absolute Lymphocytes 1.6 10^3/uL (1.2-3.4); Absolute Monocytes 0.8 10^3/uL (0.1-0.6); Absolute Neutrophils 5.8 10^3/uL (1.4-6.5); Hematocrit 41.2 % (37.0-47.0); Hemoglobin 12.7 g/dL (12.0-16.0); Mean Corp Hgb Conc. 30.8 g/dL (33.0-37.0); Mean Corpuscular Hgb 26.1 pg (27.0-31.0); Mean Corpuscular Volume 84.6 fL (81.0-99.0); Mean Platelet Volume 8.9 fL (7.4-10.4); Nucleated Red Blood Cells % 0 %; Platelet Count 479 10^3/uL (130-400); Red Blood Cell Count 4.87 10^6/uL (4.20-5.40); Red Cell Dist. Width 17.7 % (11.5-14.5)
[2024-11-28 12:38] LABS: ALT (SGPT) < 10 U/L (0-35); AST (SGOT) 16 U/L (14-36); Albumin 3.8 g/dl (3.5-5.0); Alkaline Phosphatase 61 U/L (38-126); Blood Urea Nitrogen 16 mg/dl (7-17); Calcium 9.6 mg/dl (8.4-10.2); Carbon Dioxide 27 mmol/L (22-30); Chloride 104 mmol/L (98-107); Glucose 92 mg/dl (70-99); Potassium 5.1 mmol/L (3.5-5.1); Sodium 135 mmol/L (135-145); Total Bilirubin 0.6 mg/dl (0.2-1.3); Total Protein 6.8 g/dl (6.3-8.2); eGFR > 60.00
== END ==
LOC: OLABPG 11:04
PROVIDERS: ATTENDING PHYSICIAN Nurse Practitioner Gerontology
DX: D69.1 Qualitative platelet defects (principal); D75.9 Disease of blood and blood-forming organs, unspecified; R79.89 Other specified abnormal findings of blood chemistry
CPT/HCPCS: 36415; 80053; 85025

== ENCOUNTER → 2025-03-25 13:04 | Outpatient (REF) | payer OTHER, SELFPAY ==
[2025-03-25 13:41] LABS: Hematocrit 40.7 % (37.0-47.0); Hemoglobin 13.1 g/dL (12.0-16.0); Mean Corp Hgb Conc. 32.2 g/dL (33.0-37.0); Mean Corpuscular Volume 93.3 fL (81.0-99.0); Nucleated Red Blood Cells % 0 %; Platelet Count 328 10^3/uL (130-400); Red Cell Dist. Width 13.4 % (11.5-14.5)
[2025-03-25 14:09] LABS: ALT (SGPT) 19 U/L (0-35); AST (SGOT) 24 U/L (14-36); Albumin 3.8 g/dl (3.5-5.0); Alkaline Phosphatase 51 U/L (38-126); Blood Urea Nitrogen 26 mg/dl (7-17); Calcium 9.2 mg/dl (8.4-10.2); Carbon Dioxide 29 mmol/L (22-30); Chloride 104 mmol/L (98-107); Glucose 93 mg/dl (70-99); Iron 85 ug/dl (37-170); Potassium 4.9 mmol/L (3.5-5.1); Sodium 136 mmol/L (135-145); Total Protein 6.5 g/dl (6.3-8.2); eGFR > 60.00
[2025-03-25 14:19] LABS: Total Iron Binding Capacity 353 ug/dl (265-497)
== END ==
LOC: OLABP 13:04
PROVIDERS: ATTENDING PHYSICIAN Nurse Practitioner Gerontology
DX: Z86.2 Personal history of diseases of the blood and blood-forming organs and certain disorders involving the immune mechanism (principal); R79.89 Other specified abnormal findings of blood chemistry; D50.9 Iron deficiency anemia, unspecified; D75.9 Disease of blood and blood-forming organs, unspecified; E87.1 Hypo-osmolality and hyponatremia
CPT/HCPCS: 36415; 80053; 83540; 83550; 85025

== ENCOUNTER → 2025-04-22 10:55 | Outpatient (REF) | payer OTHER, SELFPAY ==
[2025-04-22 12:21] LABS: Hematocrit 43.5 % (37.0-47.0); Hemoglobin 14.2 g/dL (12.0-16.0); Mean Corp Hgb Conc. 32.6 g/dL (33.0-37.0); Mean Corpuscular Volume 94.0 fL (81.0-99.0); Nucleated Red Blood Cells % 0 %; Platelet Count 308 10^3/uL (130-400); Red Cell Dist. Width 13.2 % (11.5-14.5)
== END ==
LOC: OLABPG 10:55
PROVIDERS: ATTENDING PHYSICIAN Nurse Practitioner Gerontology
DX: D50.9 Iron deficiency anemia, unspecified (principal); D69.1 Qualitative platelet defects
CPT/HCPCS: 36415; 85025